=== PATIENT | male | born 1955 | race Two or more races ===

== ENCOUNTER 2017-04-08 13:01 | Inpatient (IN) | payer BC ==
[~2017-04-08] VITALS: Ht 182.9 cm; Wt 89.1 kg
[2017-04-08 13:50] LABS: HEMATOCRIT 28.8 % (39.2-51.8); HEMOGLOBIN 9.5 g/dL (13.7-18.0); WHITE BLOOD COUNT 6.1 x10^3/uL (3.4-10)
[2017-04-08 14:03] LABS: BLOOD UREA NITROGEN 32 mg/dL (7-18)
[2017-04-08 14:08] LABS: IS PT STATUS REG ER OR PRE ER? YES
[2017-04-08] MEDS ORDERED: ATOR20TA PO (14:14)
[2017-04-08] MEDS ORDERED: LISI40TA PO (14:14)
[2017-04-08] MEDS ORDERED: APIX2.5T PO (14:14)
[2017-04-08] MEDS ORDERED: POTA20TA89 PO (14:14)
[2017-04-08] MEDS ORDERED: HYDR100T25 PO (14:14)
[2017-04-08] MEDS ORDERED: METO25TA35 PO (14:14)
[2017-04-08] MEDS ORDERED: LEVA15HF4 INH (14:14)
[2017-04-08] MEDS ORDERED: UMEC1DIS INH (14:14)
[2017-04-08] MEDS ORDERED: FLEC50TA25 PO (14:14)
[2017-04-08] MEDS ORDERED: FURO-92 PO (14:14)
[2017-04-08] MEDS ORDERED: AMLO10TA2 PO (14:14)
[2017-04-08] MEDS ORDERED: ASPI-496 PO (14:14)
[2017-04-08] MEDS ORDERED: SODIUM BICARBONATE 8.4% 150 MEQ in DEXTROSE 5% 1,000 ML IV ONE (14:56)
[2017-04-08] MEDS ORDERED: CALCIUM CHLORIDE 10%, 10ML SYR IVPush ONE (15:00)
[2017-04-08] MEDS ORDERED: DEXTROSE 50%, 50ML SYRINGE IVPush ONE (15:00)
[2017-04-08] MEDS ORDERED: FUROSEMIDE 40 MG/4 ML IVPush ONE (15:00)
[2017-04-08] MEDS ORDERED: INSULIN REGULAR 100 UNITS/ML, 3ML VIAL IVPush ONE (15:00)
[2017-04-08] MEDS ORDERED: SODIUM POLY SULFONATE UDC 15 GM/60 ML PO ONE (15:00)
[2017-04-08] MEDS ORDERED: CEFTRIAXONE PMX 1GM/50ML 50 ML IVPB ONE (15:00)
[2017-04-08] MEDS ORDERED: CEFTRIAXONE PMX 1GM/50ML 50 ML ONE (15:26)
[2017-04-08] MEDS ORDERED: DEXTROSE 50%, 50ML SYRINGE ONE (15:26)
[2017-04-08] MEDS ORDERED: CALCIUM CHLORIDE 10%, 10ML SYR ONE (15:26)
[2017-04-08] MEDS ORDERED: FUROSEMIDE 40 MG/4 ML ONE (15:39)
[2017-04-08] MEDS ORDERED: hydrALAzine 20 MG/ML, 1ML IVPush PRN (17:00)
[2017-04-08] MEDS ORDERED: ONDANSETRON ODT 4 MG PO PRN (17:00)
[2017-04-08] MEDS: TEMPLATE NON-FORMULARY MED. (Levalbuterol Tartrate** (Xopenex Hfa**) 2 PUFF) INH SCH ×2 (17:00→23:00)
[2017-04-08] MEDS ORDERED: LABETALOL 5MG/ML, 20ML IVPush PRN (17:00)
[2017-04-08] MEDS ORDERED: POLYETHYLENE GLYCOL 17 GM PACKET PO PRN (17:00)
[2017-04-08] MEDS ORDERED: HEPARIN 5,000 UNITS/ML, 1ML SQ SCH (17:00)
[2017-04-08 17:20] VITALS: BP 134/79
[2017-04-08 17:40] LABS: BLOOD UREA NITROGEN 34 mg/dL (7-18)
[2017-04-08 17:44] LABS: IS PT STATUS REG ER OR PRE ER? NO
[2017-04-08] MEDS ORDERED: PIPERACILLIN/TAZO/PMX 3.375GM 50 ML IV SCH (18:30)
[2017-04-08] MEDS ORDERED: PHARMACY MAY ADJ FOR RENAL FX MC PRN (18:30)
[2017-04-08 19:04] VITALS: BP 133/75
[2017-04-08 19:18] LABS: PATH.CAST-FLAG NOT PRESENT; SPERM-FLAG NOT PRESENT; SRC-FLAG NOT PRESENT; XTAL-FLAG NOT PRESENT; YLC-FLAG NOT PRESENT
[2017-04-08] MEDS: PIPERACILLIN/TAZO 3.375 GM in SODIUM CHLORIDE 0.9% 50 ML IV SCH (20:14)
[2017-04-08] MEDS: APIXABAN 2.5 MG TABLET PO SCH (22:32)
[2017-04-08] MEDS: FLECAINIDE 50MG TABLET PO SCH (22:32)
[2017-04-08] MEDS: ZOLPIDEM 5MG TABLET PO PRN (22:33)
[2017-04-08] MEDS: ATORVASTATIN 20 MG TABLET PO SCH (22:34)
[2017-04-08 23:36] LABS: BLOOD UREA NITROGEN 39 mg/dL (7-18)
[2017-04-08 23:40] LABS: IS PT STATUS REG ER OR PRE ER? NO
[2017-04-09 01:26] VITALS: BP 136/79
[2017-04-09] MEDS: PIPERACILLIN/TAZO 3.375 GM in SODIUM CHLORIDE 0.9% 50 ML IV SCH ×4 (04:13→23:00)
[2017-04-09 04:22] LABS: HEMATOCRIT 26.5 % (39.2-51.8); HEMOGLOBIN 8.7 g/dL (13.7-18.0); WHITE BLOOD COUNT 7.3 x10^3/uL (3.4-10)
[2017-04-09 04:28] LABS: ASPARTATE AMINO TRANSFERASE 38 U/L (15-37); BLOOD UREA NITROGEN 42 mg/dL (7-18)
[2017-04-09] MEDS: TEMPLATE NON-FORMULARY MED. (Levalbuterol Tartrate** (Xopenex Hfa**) 2 PUFF) INH SCH ×4 (05:00→23:00)
[2017-04-09 06:32] VITALS: BP 144/83
[2017-04-09] MEDS: ALBUTEROL SULFATE 2.5 MG/3 ML NPPB SCH ×4 (07:40→20:40)
[2017-04-09] MEDS ORDERED: SODIUM BICARBONATE 8.4% 150 MEQ in DEXTROSE 5% 1,000 ML IV SCH (08:00)
[2017-04-09] MEDS: APIXABAN 2.5 MG TABLET PO SCH (08:37)
[2017-04-09] MEDS: METOPROLOL TARTRATE 25 MG TABLET PO SCH (08:38)
[2017-04-09] MEDS: TEMPLATE NON-FORMULARY MED. (Umeclidinium Brm/Vilanterol Tr (Anoro Ellipta 62.5-25 Mcg Inh INH SCH (08:38)
[2017-04-09] MEDS: FLECAINIDE 50MG TABLET PO SCH ×2 (08:38→20:32)
[2017-04-09] MEDS: SENNA/DOCUSATE TABLET PO SCH (08:38)
[2017-04-09] MEDS: ASPIRIN 81 MG TABLET EC PO SCH (08:38)
[2017-04-09] MEDS ORDERED: AMLODIPINE 5 MG TABLET PO SCH (09:00)
[2017-04-09] MEDS ORDERED: HEPARIN 25,000 UNITS/500ML PMX 500 ML ONE (10:04)
[2017-04-09] MEDS ORDERED: FUROSEMIDE 40 MG/4 ML IV ONE (10:30)
[2017-04-09] MEDS ORDERED: HEPARIN 25,000 UNITS/500ML PMX 500 ML IV PRN (10:30)
[2017-04-09] MEDS ORDERED: FUROSEMIDE 40 MG/4 ML ONE (10:45)
[2017-04-09] MEDS ORDERED: HEPARIN wt. based STROKE protocol MC SCH (11:00)
[2017-04-09 12:57] VITALS: BP 125/69
[2017-04-09] MEDS ORDERED: FUROSEMIDE 100 MG/10 ML IV ONE (15:30)
[2017-04-09] MEDS: ATORVASTATIN 20 MG TABLET PO SCH (20:32)
[2017-04-09 20:34] VITALS: BP 116/65
[2017-04-09] MEDS: HEPARIN 25,000 UNITS/500ML PMX 500 ML IV PRN (22:59)
[2017-04-09] MEDS: ZOLPIDEM 5MG TABLET PO PRN (22:59)
[2017-04-10 03:10] VITALS: BP 132/79
[2017-04-10] MEDS: TEMPLATE NON-FORMULARY MED. (Levalbuterol Tartrate** (Xopenex Hfa**) 2 PUFF) INH SCH ×4 (05:00→21:44)
[2017-04-10] MEDS: PIPERACILLIN/TAZO 3.375 GM in SODIUM CHLORIDE 0.9% 50 ML IV SCH ×4 (05:39→23:28)
[2017-04-10 05:41] LABS: HEMATOCRIT 25.9 % (39.2-51.8); HEMOGLOBIN 8.4 g/dL (13.7-18.0); WHITE BLOOD COUNT 7.4 x10^3/uL (3.4-10)
[2017-04-10 05:48] LABS: BLOOD UREA NITROGEN 44 mg/dL (7-18)
[2017-04-10] MEDS: ALBUTEROL SULFATE 2.5 MG/3 ML NPPB SCH ×4 (07:00→19:20)
[2017-04-10 07:55] VITALS: BP 125/64
[2017-04-10] MEDS: FUROSEMIDE 20 MG/2 ML IV SCH ×2 (08:00→17:18)
[2017-04-10] MEDS: morphine SULFATE 10 MG/ML, 1ML IVPush PRN ×2 (08:28→17:56)
[2017-04-10] MEDS: AMLODIPINE 5 MG TABLET PO SCH (08:30)
[2017-04-10] MEDS: ASPIRIN 81 MG TABLET EC PO SCH (08:30)
[2017-04-10] MEDS: TEMPLATE NON-FORMULARY MED. (Umeclidinium Brm/Vilanterol Tr (Anoro Ellipta 62.5-25 Mcg Inh INH SCH (08:30)
[2017-04-10] MEDS: SENNA/DOCUSATE TABLET PO SCH (08:30)
[2017-04-10] MEDS: METOPROLOL TARTRATE 25 MG TABLET PO SCH (08:30)
[2017-04-10] MEDS: FLECAINIDE 50MG TABLET PO SCH ×2 (09:21→21:44)
[2017-04-10] MEDS ORDERED: FUROSEMIDE 40 MG/4 ML IV ONE (11:00)
[2017-04-10 13:06] VITALS: BP 142/69
[2017-04-10 19:18] VITALS: BP 125/61
[2017-04-10] MEDS: ATORVASTATIN 20 MG TABLET PO SCH (21:44)
[2017-04-10] MEDS: ZOLPIDEM 5MG TABLET PO PRN (21:44)
[2017-04-10] MEDS: HEPARIN 25,000 UNITS/500ML PMX 500 ML IV PRN (23:32)
[2017-04-11 03:45] LABS: HEMATOCRIT 26.2 % (39.2-51.8); HEMOGLOBIN 8.5 g/dL (13.7-18.0); WHITE BLOOD COUNT 6.1 x10^3/uL (3.4-10)
[2017-04-11 03:57] LABS: ASPARTATE AMINO TRANSFERASE 44 U/L (15-37); BLOOD UREA NITROGEN 35 mg/dL (7-18)
[2017-04-11 04:07] VITALS: BP 157/81
[2017-04-11] MEDS: TEMPLATE NON-FORMULARY MED. (Levalbuterol Tartrate** (Xopenex Hfa**) 2 PUFF) INH SCH ×4 (05:00→21:32)
[2017-04-11] MEDS: PIPERACILLIN/TAZO 3.375 GM in SODIUM CHLORIDE 0.9% 50 ML IV SCH ×3 (05:31→18:04)
[2017-04-11] MEDS: morphine SULFATE 10 MG/ML, 1ML IVPush PRN ×4 (05:43→18:04)
[2017-04-11] MEDS: ALBUTEROL SULFATE 2.5 MG/3 ML NPPB SCH ×4 (06:57→19:37)
[2017-04-11] MEDS: TEMPLATE NON-FORMULARY MED. (Umeclidinium Brm/Vilanterol Tr (Anoro Ellipta 62.5-25 Mcg Inh INH SCH (09:00)
[2017-04-11] MEDS: METOPROLOL TARTRATE 25 MG TABLET PO SCH (09:23)
[2017-04-11] MEDS: SENNA/DOCUSATE TABLET PO SCH (09:23)
[2017-04-11] MEDS: ASPIRIN 81 MG TABLET EC PO SCH (09:23)
[2017-04-11] MEDS: AMLODIPINE 5 MG TABLET PO SCH (09:23)
[2017-04-11] MEDS: FLECAINIDE 50MG TABLET PO SCH ×2 (09:23→21:32)
[2017-04-11] MEDS: FUROSEMIDE 20 MG/2 ML IV SCH ×2 (09:24→18:05)
[2017-04-11 09:30] VITALS: BP 125/65
[2017-04-11 13:14] VITALS: BP 135/70
[2017-04-11 18:03] VITALS: BP 120/55
[2017-04-11 19:49] VITALS: BP 128/70
[2017-04-11] MEDS: APIXABAN 2.5 MG TABLET PO SCH (21:31)
[2017-04-11] MEDS: ATORVASTATIN 20 MG TABLET PO SCH (21:31)
[2017-04-11] MEDS: ZOLPIDEM 5MG TABLET PO PRN (21:31)
[2017-04-12 00:32] VITALS: BP 137/75
[2017-04-12] MEDS: PIPERACILLIN/TAZO 3.375 GM in SODIUM CHLORIDE 0.9% 50 ML IV SCH ×3 (01:13→11:57)
[2017-04-12] MEDS: TEMPLATE NON-FORMULARY MED. (Levalbuterol Tartrate** (Xopenex Hfa**) 2 PUFF) INH SCH ×4 (04:56→19:59)
[2017-04-12 05:03] LABS: HEMATOCRIT 27.8 % (39.2-51.8); HEMOGLOBIN 8.9 g/dL (13.7-18.0); WHITE BLOOD COUNT 4.5 x10^3/uL (3.4-10)
[2017-04-12 05:12] LABS: BLOOD UREA NITROGEN 28 mg/dL (7-18)
[2017-04-12 05:19] LABS: ASPARTATE AMINO TRANSFERASE 27 U/L (15-37); TOTAL IRON BINDING CAPACITY 256 mcg/dL (250-450)
[2017-04-12 07:15] VITALS: BP 140/79
[2017-04-12] MEDS: ALBUTEROL SULFATE 2.5 MG/3 ML NPPB SCH ×4 (07:40→19:01)
[2017-04-12] MEDS ORDERED: REGADENOSON 0.4 MG/5 ML SYRINGE ONE (08:04)
[2017-04-12] MEDS: morphine SULFATE 10 MG/ML, 1ML IVPush PRN ×4 (08:30→23:31)
[2017-04-12] MEDS ORDERED: ERGOCALCIFEROL 50,000 UNIT CAPSULE PO SCH ×2 (09:00→13:22)
[2017-04-12] MEDS: TEMPLATE NON-FORMULARY MED. (Umeclidinium Brm/Vilanterol Tr (Anoro Ellipta 62.5-25 Mcg Inh INH SCH (09:00)
[2017-04-12 11:51] VITALS: BP 124/70
[2017-04-12] MEDS: ASPIRIN 81 MG TABLET EC PO SCH (11:56)
[2017-04-12] MEDS: APIXABAN 2.5 MG TABLET PO SCH (11:56)
[2017-04-12] MEDS: AMLODIPINE 5 MG TABLET PO SCH (11:56)
[2017-04-12] MEDS: SENNA/DOCUSATE TABLET PO SCH (11:56)
[2017-04-12] MEDS: METOPROLOL TARTRATE 25 MG TABLET PO SCH (11:56)
[2017-04-12] MEDS: FUROSEMIDE 20 MG/2 ML IV SCH ×2 (11:57→18:40)
[2017-04-12] MEDS: FLECAINIDE 50MG TABLET PO SCH (11:57)
[2017-04-12 12:25] VITALS: BP 126/77
[2017-04-12] MEDS ORDERED: MAGNESIUM SULFATE PMX 2GM/50ML 50 ML IV ONE (16:30)
[2017-04-12] MEDS ORDERED: PHARMACY MAY ADJ FOR RENAL FX MC PRN (17:00)
[2017-04-12] MEDS: AMPICILLIN/SULBACTAM 3 GM in SODIUM CHLORIDE 0.9% 100 ML IV SCH ×2 (17:56→23:20)
[2017-04-12] MEDS: FERROUS SULFATE 325 MG TABLET PO SCH (17:56)
[2017-04-12] MEDS: ATORVASTATIN 20 MG TABLET PO SCH (19:59)
[2017-04-12] MEDS: ZOLPIDEM 5MG TABLET PO PRN (19:59)
[2017-04-12] MEDS: APIXABAN 5 MG TABLET PO SCH (19:59)
[2017-04-12 20:27] VITALS: BP 105/61
[2017-04-13 02:25] VITALS: BP 134/69
[2017-04-13] MEDS: AMPICILLIN/SULBACTAM 3 GM in SODIUM CHLORIDE 0.9% 100 ML IV SCH ×2 (04:41→10:44)
[2017-04-13] MEDS: TEMPLATE NON-FORMULARY MED. (Levalbuterol Tartrate** (Xopenex Hfa**) 2 PUFF) INH SCH ×4 (04:41→23:00)
[2017-04-13 05:06] LABS: HEMATOCRIT 28.9 % (39.2-51.8); HEMOGLOBIN 9.3 g/dL (13.7-18.0); WHITE BLOOD COUNT 3.9 x10^3/uL (3.4-10)
[2017-04-13 05:17] LABS: BLOOD UREA NITROGEN 27 mg/dL (7-18)
[2017-04-13 05:23] LABS: ASPARTATE AMINO TRANSFERASE 21 U/L (15-37)
[2017-04-13] MEDS: ALBUTEROL SULFATE 2.5 MG/3 ML NPPB SCH ×4 (07:00→20:00)
[2017-04-13 07:24] VITALS: BP 140/75
[2017-04-13] MEDS: SENNA/DOCUSATE TABLET PO SCH (08:53)
[2017-04-13] MEDS: ASPIRIN 81 MG TABLET EC PO SCH (10:44)
[2017-04-13] MEDS: APIXABAN 5 MG TABLET PO SCH ×2 (10:44→21:20)
[2017-04-13] MEDS: AMLODIPINE 2.5 MG TABLET PO SCH (10:44)
[2017-04-13] MEDS: TEMPLATE NON-FORMULARY MED. (Umeclidinium Brm/Vilanterol Tr (Anoro Ellipta 62.5-25 Mcg Inh INH SCH (10:47)
[2017-04-13] MEDS: FUROSEMIDE 40 MG TABLET PO SCH ×2 (10:47→18:21)
[2017-04-13] MEDS: morphine SULFATE 10 MG/ML, 1ML IVPush PRN ×3 (11:12→18:21)
[2017-04-13 12:50] VITALS: BP 155/81
[2017-04-13] MEDS ORDERED: PHARMACY MAY ADJ FOR RENAL FX MC PRN (17:30)
[2017-04-13] MEDS: METOPROLOL TARTRATE 50 MG TABLET PO SCH (18:12)
[2017-04-13] MEDS: FERROUS SULFATE 325 MG TABLET PO SCH (18:12)
[2017-04-13 19:49] VITALS: BP 150/78
[2017-04-13] MEDS: ZOLPIDEM 5MG TABLET PO PRN (21:20)
[2017-04-13] MEDS: AMOXICILLIN/CLAV 875-125MG TABLET PO SCH (21:20)
[2017-04-13] MEDS: ATORVASTATIN 20 MG TABLET PO SCH (21:20)
[2017-04-14 01:08] VITALS: BP 142/87
[2017-04-14] MEDS: TEMPLATE NON-FORMULARY MED. (Levalbuterol Tartrate** (Xopenex Hfa**) 2 PUFF) INH SCH (05:00)
[2017-04-14 05:11] VITALS: BP 146/82
[2017-04-14] MEDS: METOPROLOL TARTRATE 50 MG TABLET PO SCH (05:13)
[2017-04-14 05:44] LABS: HEMATOCRIT 29.8 % (39.2-51.8); HEMOGLOBIN 9.7 g/dL (13.7-18.0); WHITE BLOOD COUNT 4.6 x10^3/uL (3.4-10)
[2017-04-14 05:49] LABS: BLOOD UREA NITROGEN 23 mg/dL (7-18)
[2017-04-14 05:53] LABS: ASPARTATE AMINO TRANSFERASE 19 U/L (15-37)
[2017-04-14 06:53] VITALS: BP 149/82
[2017-04-14] MEDS: ALBUTEROL SULFATE 2.5 MG/3 ML NPPB SCH (08:04)
[2017-04-14] MEDS: FUROSEMIDE 40 MG TABLET PO SCH (08:58)
[2017-04-14] MEDS: SENNA/DOCUSATE TABLET PO SCH (08:58)
[2017-04-14] MEDS: AMLODIPINE 2.5 MG TABLET PO SCH (08:58)
[2017-04-14] MEDS: APIXABAN 5 MG TABLET PO SCH (08:58)
[2017-04-14] MEDS: AMOXICILLIN/CLAV 875-125MG TABLET PO SCH (08:58)
[2017-04-14] MEDS: TEMPLATE NON-FORMULARY MED. (Umeclidinium Brm/Vilanterol Tr (Anoro Ellipta 62.5-25 Mcg Inh INH SCH (08:58)
[2017-04-14] MEDS: ASPIRIN 81 MG TABLET EC PO SCH (08:58)
[2017-04-14] MEDS: morphine SULFATE 10 MG/ML, 1ML IVPush PRN (09:28)
[2017-04-14] MEDS ORDERED: METOPROLOL TARTRATE 25 MG TABLET PO SCH (12:00)
[2017-04-14] MEDS ORDERED: FURO40TA6 PO (12:05)
[2017-04-14] MEDS ORDERED: METO50TA82 PO (12:05)
[2017-04-14] MEDS ORDERED: APIX5TAB PO (12:05)
[2017-04-14] MEDS ORDERED: ERGO500017 PO (12:12)
[2017-04-14] MEDS ORDERED: AMOX1TAB12 PO (12:12)
[2017-04-14] MEDS ORDERED: FERR-36 PO (12:12)
[2017-04-14] MEDS ORDERED: POTA20TA89 PO (12:17)
[2017-04-14] MEDS ORDERED: ATOR20TA9 PO (12:18)
[2017-04-14] MEDS ORDERED: METOPROLOL TARTRATE 50 MG TABLET PO SCH (18:00)
[2017-04-15] MEDS ORDERED: ERGOCALCIFEROL 50,000 UNIT CAPSULE PO SCH (09:00)
== END 2017-04-14 15:55 | disposition home or self-care (01) | DRG 189 ==
LOC: ED 14:05 → EDIP 14:42 → 5SO 17:18 → DCLOUNGE 04-14 15:00
PROVIDERS: ADMIT Internal Medicine; ATTEND Internal Medicine
DX: J96.21 Acute and chronic respiratory failure with hypoxia (principal); E43 Unspecified severe protein-calorie malnutrition; I50.21 Acute systolic (congestive) heart failure; J15.9 Unspecified bacterial pneumonia; D68.69 Other thrombophilia; E11.22 Type 2 diabetes mellitus with diabetic chronic kidney disease; N17.9 Acute kidney failure, unspecified; N18.3 Chronic kidney disease, stage 3 (moderate); E87.2 Acidosis; I13.0 Hypertensive heart and chronic kidney disease with heart failure and stage 1 through stage 4 chronic kidney disease, or unspecified chronic kidney disease; I48.92 Unspecified atrial flutter; J44.0 Chronic obstructive pulmonary disease with (acute) lower respiratory infection; D64.9 Anemia, unspecified; Z68.26 Body mass index [BMI] 26.0-26.9, adult; E55.9 Vitamin D deficiency, unspecified; E78.00 Pure hypercholesterolemia, unspecified; E87.5 Hyperkalemia; E87.8 Other disorders of electrolyte and fluid balance, not elsewhere classified; I08.1 Rheumatic disorders of both mitral and tricuspid valves; I25.10 Atherosclerotic heart disease of native coronary artery without angina pectoris; I27.20 Pulmonary hypertension, unspecified; I48.2 Chronic atrial fibrillation; I70.0 Atherosclerosis of aorta; I77.810 Thoracic aortic ectasia; E79.0 Hyperuricemia without signs of inflammatory arthritis and tophaceous disease; N26.9 Renal sclerosis, unspecified; Z66 Do not resuscitate; Z79.01 Long term (current) use of anticoagulants; Z79.1 Long term (current) use of non-steroidal anti-inflammatories (NSAID); Z79.82 Long term (current) use of aspirin; Z79.899 Other long term (current) drug therapy; Z80.0 Family history of malignant neoplasm of digestive organs; Z80.6 Family history of leukemia; Z83.3 Family history of diabetes mellitus; Z87.891 Personal history of nicotine dependence; Z96.619 Presence of unspecified artificial shoulder joint; Z99.81 Dependence on supplemental oxygen
CPT/HCPCS: 36415; 71010; 71250; 76770; 78452; 80047; 80048; 80053; 80200; 81001; 82040; 82306; 82728; 83540; 83550; 83605; 83735; 83880; 84100; 84145; 84439; 84484; 84550; 85025; 85379; 85520; 85610; 85730; 86480; 87015; 87040; 87070; 87116; 87205; 87206; 93005; 93017; 93306; 94640; 96365; 96375; J0295; J1644; J1940; J2785; J7070; J7613; Q0162; A9502; C9898; J2270; J3475